=== PATIENT | male | born 1950 | race Caucasian/White ===

== ENCOUNTER → 2020-03-07 | Day surgery (SDC) | payer MEDICARE, BC ==
[2020-03-05 10:18] VITALS: BMI 23.7
--- NOTE | 2020-03-05 17:15 | P.GSHP ---
History of Present Illness H&P Date: 03/01/20 Chief Complaint: Weak urinary stream The patient is a 69-year-old white male with symptomatic BPH. He failed treatment with tamsulosin and finasteride. He is currently taking alfuzosin, but continues to experience symptoms of weak urinary stream, postvoid dribbling, urinary frequency, and feeling of incomplete bladder emptying. Uroflow shows a peak flow rate of 14 mL/s, with adequate bladder emptying. Cystoscopy shows bilobar BPH with a very small median lobe. Options discussed include continuation of medical therapy, Urolift, and transurethral resection of prostate (TURP). The pros and cons of each option were reviewed, and he has elected to undergo Urolift. - Constitutional Constitutional: Denies chills, Denies fever - Genitourinary (Male) Genitourinary: Reports as per [facility] Medications and Allergies Home Medications Medication Instructions Recorded Confirmed Type Alfuzosin HCl [Alfuzosin HCl ER] 10 mg PO QAM 03/05/20 03/05/20 History Bisoprolol Fumarate [Zebeta] 10 mg PO HS 03/05/20 03/05/20 History Flecainide [Tambocor] 50 mg PO Q12HR 03/05/20 03/05/20 History LORazepam [Ativan] 0.5 mg PO DIRECTED PRN 03/05/20 03/05/20 History Rivaroxaban [Xarelto] 20 mg PO HS 03/05/20 03/05/20 History amLODIPine [Norvasc] 5 mg PO QAM 03/05/20 03/05/20 History Allergies Allergy/AdvReac Type Severity Reaction Status Date / Time No Known Allergies Allergy Verified 03/05/20 10:12 Surgical - Exam - General well developed, well nourished, no distress - Respiratory normal respiratory effort - Abdomen Abdomen: soft, non tender, no guarding, no rigid, no rebound - Genitourinary normal penis with no external lesions, testicles non-tender - Rectum Rectum: normal sphincter tone, no masses, other (Prostate mildly enlarged but smooth) - Psychiatric oriented to time, oriented to person, oriented to place, speech is normal, memory intact Assessment and Plan (1) Benign prostatic hyperplasia with lower urinary tract symptoms Status: Acute Code(s): N40.1 - BENIGN PROSTATIC HYPERPLASIA WITH LOWER URINARY TRACT SYMP SNOMED Code(s): 954174717 Plan: Cystoscopy with Urolift. The procedure has been reviewed in detail with the patient. He is aware of potential risks, which include anesthesia, bleeding, infection, postoperative irritative voiding symptoms, and suboptimal relief of symptoms.
[~2020-03-07] MED LIST: ACETAMINOPHEN TAB 500 MG TAB ONE; ACETAMINOPHEN TAB 500 MG TAB PO ONE; DEXAMETHASONE SOD PHOSPHATE 10 MG/ML 1 ML VIAL IV ONE; HYDROmorphone 0.5 MG/0.5 ML SYRINGE IVP PRN; LACTATED RINGERS 1,000 ML IV ONE; LACTATED RINGERS 1,000 ML IV SCH; LIDOCAINE 1% INJ 10MG/ML (20 ML MDV) ONE; MIDAZOLAM 2 MG/2 ML VIAL ONE; ONDANSETRON 4 MG/2 ML VIAL IVP ONE; PROPOFOL 10 MG/ML 20 ML VIAL IV ONE; SUCCINYLCHOLINE CHLORIDE 100 MG/5 ML SYR IV ONE; ceFAZolin 1,000 MG VIAL ONE; ePHEDrine SULFATE/0.9% NACL/PF 50 MG/5 ML SYRINGE IV ONE; fentaNYL (PF) 50 MCG/ML 2 ML AMP ONE
[2020-03-07 08:49] VITALS: TEMP 96.9
--- NOTE | 2020-03-07 08:53 | P.OP ---
Date of Procedure: 03/07/20 Preoperative Diagnosis: BPH with obstruction Postoperative Diagnosis: Same Procedure(s) Performed: Cystoscopy with Urolift implants Anesthesia: CLAUDETTE Surgeon: Nicolas Reveles Estimated Blood Loss (ml): 10 IV fluids (ml): 1,000 Pathology: none sent Condition: stable Disposition: PACU Indications for Procedure: The patient is a 69-year-old white male with symptomatic BPH. He failed treatment with tamsulosin and finasteride. He is currently taking alfuzosin, but continues to experience symptoms of weak urinary stream, postvoid dribbling, urinary frequency, and feeling of incomplete bladder emptying. Uroflow shows a peak flow rate of 14 mL/s, with adequate bladder emptying. Cystoscopy shows bilobar BPH with a very small median lobe. Options discussed include continuation of medical therapy, Urolift, and transurethral resection of prostate (TURP). The pros and cons of each option were reviewed, and he has elected to undergo Urolift. Operative Findings: 7 implants placed resulting in open prostatic fossa Description of Procedure: The patient was taken in the operating room and placed in the dorsolithotomy position. The external genitalia was prepped and draped sterilely. The 30 l ens was used to introduce the Stortz cystoscopic sheath through the urethra and into the bladder under direct vision. The anterior urethra appeared normal. The prostatic urethra showed evidence of complete obstruction with a bilobar configuration. A very small median lobe was noted. Both ureteral orifice his were of normal anatomic location and configuration. No tumors or foreign bodies were seen. The bladder was not trabeculated. Urolift implants were placed at the 10:00 and 2:00 positions approximately 1 cm distal to the vesical neck. 2 additional Urolift implants were placed at the 9:00 and 3:00 positions at the level of the verumontanum. 3 additional implants were placed to achieve an open prostatic fossa. The Bugbee electrode was used to fulgurate bleeders. Hemostasis was adequate. The bladder was emptied and the cystoscope removed. The patient tolerated the procedure well was taken to the recovery room in stable condition.
[2020-03-07 08:59] VITALS: RESP 16
[2020-03-07 09:33] VITALS: PULSE 65
[2020-03-07 09:48] VITALS: BP 141/94
== END | disposition home or self-care (01) ==
LOC: OR 06:05
PROVIDERS: ATTEND Urology
DX: N40.1 Benign prostatic hyperplasia with lower urinary tract symptoms (principal); N13.8 Other obstructive and reflux uropathy; N39.43 Post-void dribbling; R35.0 Frequency of micturition; R39.14 Feeling of incomplete bladder emptying; R39.12 Poor urinary stream; I10 Essential (primary) hypertension; I48.91 Unspecified atrial fibrillation; F41.9 Anxiety disorder, unspecified; Z79.899 Other long term (current) drug therapy; Z79.01 Long term (current) use of anticoagulants; Z98.890 Other specified postprocedural states; Z96.653 Presence of artificial knee joint, bilateral
CPT/HCPCS: L8699; J2250; J1100; J2405; J0690; J2001; J3010; J0330; J2704; C9740